=== PATIENT | female | born 1945 | race Two or more races ===

== ENCOUNTER → 2018-01-27 | Emergency (ER) | payer OTHER ==
[~2018-01-27] VITALS: Ht 157.5 cm; Wt 59.0 kg
[~2018-01-27] MED LIST: LOSARTAN-HCTZ1 EAC1; NORVASC10 MG; SINEMET CR 25-1 EACH; ZANTAC300 MG
== END | disposition home or self-care (01) ==
LOC: ER 16:20
DX: R10.84 Generalized abdominal pain (principal); R11.2 Nausea with vomiting, unspecified; E87.6 Hypokalemia

== ENCOUNTER 2019-03-18 13:42 | Outpatient (CLI) | payer OTHER | END 2019-03-18 13:51 | disposition home or self-care (01) | LOC: MAMO-SONO 13:42 | DX: N60.21 Fibroadenosis of right breast (principal); N60.22 Fibroadenosis of left breast; Z12.31 Encounter for screening mammogram for malignant neoplasm of breast; Z87.898 Personal history of other specified conditions ==

== ENCOUNTER 2021-12-09 07:59 | Outpatient (CLI) | payer OTHER | END 2021-12-09 08:07 | disposition home or self-care (01) | LOC: SONOGRAMA 07:59 | PROVIDERS: ATTEND Internal Medicine Hematology & Oncology | DX: D72.824 Basophilia (principal); D53.8 Other specified nutritional anemias; R16.2 Hepatomegaly with splenomegaly, not elsewhere classified ==